=== PATIENT | male | born 1965 | race African-American/Black ===

== ENCOUNTER 2022-01-05 15:34 | Emergency (ER) | payer MEDICAID, OTHER ==
[~2022-01-05] VITALS: Ht 167.6 cm; Wt 100.0 kg
[~2022-01-05 15:34] MED LIST: CEPH500C3 PO; CYCL10TA17 PO; LURA40TA2 PO; PRAZ1 PO; SULF-168 PO
[2022-01-05] MEDS ORDERED: ACETAMINOPHEN 325 MG TABLET PO ONE (19:30)
[2022-01-05] MEDS ORDERED: IBUPROFEN 600 MG TABLET PO ONE (19:30)
[2022-01-05 22:41] VITALS: BP 130/97
== END 2022-01-05 22:44 | disposition home or self-care (01) ==
LOC: EMS 15:59
DX: M25.511 Pain in right shoulder (principal); M25.512 Pain in left shoulder; R51.9 Headache, unspecified; M54.2 Cervicalgia; F32.9 Major depressive disorder, single episode, unspecified; Z79.899 Other long term (current) drug therapy; V49.49XA Driver injured in collision with other motor vehicles in traffic accident, initial encounter; Y93.89 Activity, other specified; Y92.89 Other specified places as the place of occurrence of the external cause; Y99.8 Other external cause status
CPT/HCPCS: 70450; 72125; 99284; 99285

== ENCOUNTER 2022-07-07 06:09 | Emergency (ER) | payer MEDICAID ==
[~2022-07-07] VITALS: Ht 167.6 cm; Wt 98.0 kg
[~2022-07-07 06:09] MED LIST changes: +CEPH-558 PO; -CEPH500C3 PO; +CYCL-448 PO; -CYCL10TA17 PO
[2022-07-07] MEDS ORDERED: RISP1TAB48 PO (06:46)
[2022-07-07 08:38] VITALS: BP 148/90
== END 2022-07-07 08:44 | disposition home or self-care (01) ==
LOC: EMS 06:10
DX: Z48.00 Encounter for change or removal of nonsurgical wound dressing (principal); Z79.899 Other long term (current) drug therapy; E78.00 Pure hypercholesterolemia, unspecified; F32.9 Major depressive disorder, single episode, unspecified
CPT/HCPCS: 99281; Z7502

== ENCOUNTER 2023-03-31 15:25 | Emergency (ER) | payer MEDICAID ==
[~2023-03-31] VITALS: Ht 167.6 cm; Wt 104.5 kg
[~2023-03-31 15:25] MED LIST changes: -CEPH-558 PO; -CYCL-448 PO; -LURA40TA2 PO; -PRAZ1 PO; +RISP1TAB48 PO; -SULF-168 PO
[2023-03-31 15:58] VITALS: BP 162/102
[2023-03-31] MEDS ORDERED: KETOROLAC TROMETHAMINE 30 MG/ML VIAL IM ONE (16:00)
[2023-03-31] MEDS ORDERED: IBUP-1492 PO (16:17)
== END 2023-03-31 16:36 | disposition home or self-care (01) ==
LOC: EMS 15:28
DX: S89.92XA Unspecified injury of left lower leg, initial encounter (principal); F32.A Depression, unspecified; E78.00 Pure hypercholesterolemia, unspecified; Z96.652 Presence of left artificial knee joint; W19.XXXA Unspecified fall, initial encounter; Y93.89 Activity, other specified; Y92.89 Other specified places as the place of occurrence of the external cause; Y99.8 Other external cause status
CPT/HCPCS: 99284; 73552; 73562; 96372; J1885